=== PATIENT | male | born 1950 | race Caucasian/White ===

== ENCOUNTER 2016-09-23 12:37 | Emergency (ER) | payer OTHER, MEDICARE ==
[~2016-09-23] VITALS: Ht 172.7 cm; Wt 85.7 kg
[~2016-09-23 12:37] MED LIST: ASPIRIN LITE C325 MG PO; ATORVASTATIN CA80 MG PO; BENICAR40 MG PO; CLOPIDOGREL75 MG PO; CO Q-1010 MG PO; JANUVIA 100MG100 MG PO; METFORMIN1000 MG PO; METOPROLOL SUCC50 M1 PO; PERCOCET 325 MG1 TA2 PO; SPIRONOLACTONE25 MG PO; VICODIN 500 MG-1 TAB PO; VICTOZA6 MG/ML SC; VITAB121000 PO; VITAMIN B12100 MCG; VITAMIN D31000 IU PO; ZETIA10 MG PO
--- NOTE | 2016-09-23 14:32 | ED DYSPNEA/ASTHMA COMPLAINT ---
History of Present Illness General Chief Complaint: Upper Respiratory Sx/Fever Stated Complaint: URI Source: patient, old records Exam Limitations: no limitations Vital Signs & Intake/Output Vital Signs & Intake/Output Vital Signs Date Time Temp Pulse Resp B/P Pulse O2 O2 Flow FiO2 Ox Delivery Rate 09/23 1346 96 09/23 1319 98 Room Air 09/23 1241 96.7 92 18 134/86 96 Room Air Allergies Coded Allergies: NO KNOWN ALLERGIES (10/06/15) Reconcile Medications Aspirin 325 MG TABLET 1 TAB PO DAILY HEART (Reported) Atorvastatin Calcium (Lipitor) 80 MG TABLET 1 TAB PO DAILY CHOLOSTEROL ( Reported) Cholecalciferol (Vitamin D3) 1,000 IU TAB 1 TAB PO DAILY SUPPLEMENT (Reported ) CLOPIDOGREL BISULFATE (Clopidogrel) 75 MG TABLET 1 TAB PO DAILY blood thinner (Reported) Cyanocobalamin (Vitamin B-12) 1,000 MCG TAB 1 TAB PO DAILY Vitamin supplement (Reported) Ezetimibe (Zetia) 10 MG TAB 1 TAB PO DAILY CHOLOSTEROL (Reported) Liraglutide (Victoza 3-Supa) 6 MG/ML CHAVEZ 1.8 mg SC DAILY DIABETES (Reported) METFORMIN HCL (Metformin) 1,000 MG TABLET 1 TAB PO BID DIABETES (Reported) Metoprolol Succinate (Metoprolol Succinate XL) [address] 1 TAB PO DAILY HEART (Reported) Olmesartan Medoxomil (Benicar) 40 MG TAB 1 TAB PO DAILY BP (Reported) OXYCODONE HCL/ACETAMINOPHEN (Percocet 5-325 MG Tablet) 325 MG/5 MG TAB 1-2 TAB PO Q4-6 PRN PRN PAIN Spironolactone 25 MG TABLET 1 TAB PO DAILY BP (Reported) UBIDECARENONE (Coenzyme Q10) 50 MG CAPSULE 1 TAB PO DAILY heart (Reported) Core Measure Meds Pre-Hospital aspirin Triage Note: PT SIB DR FINNEGAN AT [facility], PT STATING HE HAS A HX OF "CHRONIC BRONCHITIS". REPORTING NON PRODUCTIVE COUGH AND RUNNY NOSE X 1 WEEK. DENIES FEVER, NVD, CP. RECIEVED 125 MG SOLUMEDROL AT [facility], ALBUTEROL NEB, EKG WHICH SHOWED NSR, NEGATIVE FLU AND STREP. PT HAD A CXR AT [facility] AND HAS DISC WITH HIM. Triage Nurses Notes Reviewed? yes Onset: Last week Duration: day(s):, changing over time, continues in ED Timing: recent history Severity: moderate Prior Episodes/Possible Cause: illness exposure Modifying Factors: Improves With: rest. Worsens With: movement. Associated Symptoms: cough, wheezing HPI: 1 week prior to admission patient complains of nonproductive cough nasal congestion increased wheezing and shortness of breath especially at night. Denies fever chills chest pain headache nausea vomiting diarrhea abdominal pain dysuria rash bleeding. Prior to admission he was seen at walk-in center given neb IM Solu-Medrol with normal sinus rhythm EKG and x-ray without infiltrates. Past History Travel History Traveled to [place] past 21 day No Medical History Any Pertinent Medical History? see below for history Neurological: NONE EENT: NONE Cardiovascular: htn, stent placed CHOLESTERAL Respiratory: asthma, bronchitis, COPD, emphysema Gastrointestinal: umbilical hernia Hepatic: NONE Renal: NONE Musculoskeletal: BILAT KNEE PAIN Psychiatric: NONE Endocrine: diabetes Blood Disorders: NONE Cancer(s): NONE Surgical History Surgical History: stent placed Psychosocial History Who do you live with Family Services at Home None What is your primary language Telugu Tobacco Use: Quit <30 days ago ETOH Use: occasional use Illicit Drug Use: denies illicit drug use Family History Hx Contributory? No Review of Systems Review of Systems Constitutional: Reports: see HPI, malaise. EENTM: Reports: see HPI, nasal congestion. Respiratory: Reports: see HPI, cough, short of breath, wheezing. Cardiovascular: Reports: no symptoms. GI: Reports: no symptoms. Genitourinary: Reports: no symptoms. Musculoskeletal: Reports: no symptoms. Skin: Reports: no symptoms. Neurological/Psychological: Reports: no symptoms. Hematologic/Endocrine: Reports: no symptoms. Immunologic/Allergic: Reports: no symptoms. All Other Systems: Reviewed and Negative Physical Exam Physical Exam General Appearance: well developed/nourished, alert, awake, anxious, mild distress Head: atraumatic, normal appearance Eyes: Bilateral: normal appearance, PERRL, EOMI. Ears, Nose, Throat: normal pharynx, normal ENT inspection Neck: normal inspection, supple, full range of motion, no midline tenderness Respiratory: chest non-tender, quiet respiration, decreased breath sounds, wheezing Cardiovascular: regular rate/rhythm, normal peripheral pulses, norml femoral pulses equa Peripheral Pulses: 4+ carotid (R), 4+ carotid (L) Gastrointestinal: normal bowel sounds, soft, non-tender, no organomegaly Extremities: normal inspection, normal capillary refill, normal range of motion, no edema Neurologic/Psych: no motor/sensory deficits, awake, alert, oriented x 3, normal gait, normal mood/affect Skin: intact, normal color, warm/dry Lymphatic: no anterior cervical lias Core Measures ACS in differential dx? No Severe Sepsis Present: No Septic Shock Present: No Progress Differential Diagnosis: asthma, COPD, pneumonia Plan of Care: Current Medications Sig/Black Start time Last Medication Dose Stop Time Status Admin Albuterol Sulfate 3 ML ONCE ONE 09/23 1430 UNVr (Proventil) 09/23 1431 Amoxicillin 750 MG ONCE ONE 09/23 1430 UNVr (Amoxil) 09/23 1431 Diagnostic Imaging: Viewed by Me: Radiology Read. Discussed w/RAD: Radiology Read. CXR Impression: no acute abnormality Pre-Hospital EKG: normal axis, normal intervals, normal p-waves, normal QRS complex, normal sinus rhythm, no ST T wave changes Initial ED EKG: none Departure Departure Time of Disposition: 1500 Disposition: HOME OR SELF CARE Condition: Stable Clinical Impression Primary Impression: COPD with acute exacerbation Secondary Impressions: Bronchitis Referrals: LUSI GONG (PCP/Family) Departure Forms: Customer Survey General Discharge Information Prescriptions: Current Visit Scripts Amoxicillin 1 TAB PO BID #20 TAB Prednisone 1 TAB PO BID #10 TAB Albuterol Sulfate 1 Vial INH/CHAVEZ Q4P PRN wheezing #50 Vial Ref 5 Chlorpheniramine/Codeine Phos (Z-Tuss AC Liquid) 5-10 ML PO Q6P PRN cough #240 ML [Nebulizer machine] 1 UNIT INH Q4 PRN wheezing #1 UNIT Critical Care Note Critical Care Note Critical Care Time: non-applicable
[2016-09-23] MEDS ORDERED: Z-TUSS AC LIQU473 ML PO (14:40)
[2016-09-23] MEDS ORDERED: AMOXICILLIN875 M1 PO (14:40)
[2016-09-23] MEDS ORDERED: PREDNISONE20 M1 PO (14:40)
[2016-09-23] MEDS ORDERED: ALBUTEROL2.5 MG/3 M INH/SOL (14:40)
[2016-09-23] MEDS ORDERED: Nebulizer machine INH (14:40)
[2016-09-23 14:48] VITALS: BP 143/65
== END 2016-09-23 15:02 ==
LOC: ERH 12:37
DX: J44.1 Chronic obstructive pulmonary disease with (acute) exacerbation (principal); Z87.891 Personal history of nicotine dependence
CPT/HCPCS: 1263